=== PATIENT | male | born 1990 | race African-American/Black ===

== ENCOUNTER 2016-11-09 03:24 | Emergency (ER) | payer OTHER ==
[~2016-11-09] VITALS: Ht 182.9 cm; Wt 93.8 kg
[2016-11-09] MEDS ORDERED: ALPRAZOLAM0.25 M2 PO (04:18)
[2016-11-09] MEDS ORDERED: GABAPENTIN800 MG PO (04:18)
[2016-11-09] MEDS ORDERED: ZYPREXA10 MG PO (04:18)
[2016-11-09] MEDS ORDERED: CARISOPRODOL350 MG PO (04:18)
[2016-11-09 05:19] VITALS: BP 136/95
[2016-11-09] MEDS ORDERED: NARCAN4 MG NS (16:51)
== END 2016-11-09 05:26 | disposition home or self-care (01) ==
LOC: EME 03:24
DX: F43.9 Reaction to severe stress, unspecified (principal); F32.9 Major depressive disorder, single episode, unspecified; F43.10 Post-traumatic stress disorder, unspecified; Z76.0 Encounter for issue of repeat prescription; F17.200 Nicotine dependence, unspecified, uncomplicated; Z88.6 Allergy status to analgesic agent
CPT/HCPCS: 99281; 99283

== ENCOUNTER 2016-11-09 12:28 | Emergency (ER) | payer OTHER ==
[~2016-11-09] VITALS: Ht 172.7 cm; Wt 77.0 kg
[~2016-11-09 12:28] MED LIST: ALPRAZOLAM0.25 M2 PO; CARISOPRODOL350 MG PO; GABAPENTIN800 MG PO; ZYPREXA10 MG PO
[2016-11-09 14:09] LABS: HEMATOCRIT 48.9 % (38.0-50.0); MCH 30.6 PG (29.0-34.0); MCHC 33.9 G/DL (30.0-36.0); MCV 90.1 FL (86-99); MEAN PLAT.VOLUME 10.7 uM^3 (9.0-12.4); PLATELET COUNT 154 K/uL (156-360); RBC DIS.WIDTH-CV 13.2 % (11.8-14.6); RBC DIS.WIDTH-SD 43.7 % (39-53); RED BLOOD COUNT 5.43 M/uL (4.00-5.50); WHITE BLOOD COUNT 6.6 K/uL (4.1-10.2)
[2016-11-09 14:11] LABS: ADD MEDTOX COMMENT Y; AMPHETAMINE NEGATIVE (500 ng/mL); BARBITURATES NEGATIVE (200 ng/mL); BENZODIAZEPINES PRESUMPTIVE POSITIVE (150 ng/mL); COCAINE NEGATIVE (150 ng/mL); INTERNAL CONTROLS VALID? YES; METHADONE NEGATIVE (200 ng/mL); METHAMPHETAMINE NEGATIVE (500 ng/mL); OPIATES (MORPHINE) PRESUMPTIVE POSITIVE (100 ng/mL); OXYCODONE NEGATIVE (100 ng/mL); PHENCYCLIDINE NEGATIVE (25 ng/mL); PROPOXYPHENE NEGATIVE (300 ng/mL); THC CANNABINOIDS PRESUMPTIVE POSITIVE (50 ng/mL); TRICYCLIC ANTIDEPRESSANTS NEGATIVE (300 ng/mL)
[2016-11-09 14:18] LABS: CHLORIDE 103 mEq/L (99-109); POTASSIUM 4.3 mEq/L (3.7-5.4); SODIUM 140 mEq/L (136-147)
[2016-11-09 14:20] LABS: GLUCOSE 96 mg/dL (70-99)
[2016-11-09 14:21] LABS: ANION GAP 13 MEQ/L (2-14)
[2016-11-09 14:22] LABS: TOTAL BILIRUBIN 1.2 mg/dL (0.0-1.0)
[2016-11-09 14:23] LABS: ALKALINE PHOSPHATASE 53 IU/L (3-129); SERUM ETHYL ALCOHOL < 10 mg/dL
[2016-11-09 14:24] LABS: GFR ESTIMATE (CALCULATED) > 59 mL/min/
[2016-11-09 14:25] LABS: UREA NITROGEN (BUN) 10 mg/dL (9-23)
[2016-11-09 14:59] LABS: BENZODIAZEPINES, URINE SCREEN POSITIVE (200 ng/mL)
[2016-11-09] MEDS ORDERED: NARCAN4 MG NS (16:51)
[2016-11-09 18:08] VITALS: BP 111/66
== END 2016-11-09 18:11 | disposition home or self-care (01) ==
LOC: EME 12:28
PROVIDERS: Emergency Medicine
DX: T50.901A Poisoning by unspecified drugs, medicaments and biological substances, accidental (unintentional), initial encounter (principal); F19.10 Other psychoactive substance abuse, uncomplicated; F17.200 Nicotine dependence, unspecified, uncomplicated
CPT/HCPCS: 80053; 84999; 85027; 99281; 99284; G0480; J2310; J2405